=== PATIENT | male | born 1990 | race Caucasian/White ===

== ENCOUNTER 2018-04-20 00:19 | Emergency (ER) | payer OTHER ==
[2018-04-20] MEDS ORDERED: ONDANSETRON 4 MG/2 ML VIAL IVP ONE (00:26)
[2018-04-20] MEDS ORDERED: NS 1,000 ML IV ONE (00:26)
--- NOTE | 2018-04-20 00:26 | EDPHY ---
H & P Source: Police, RN/MD, EMS Exam Limitations: Intoxication Time Seen by Provider: 04/20/18 00:22 HPI/ROS: HPI: This is a 27-year-old male who presents with Chief Complaint: Alcohol intoxication Location: Body Quality: Alcohol intoxication Duration: Unknown Signs and Symptoms: No chest pain, no shortness of breath, no abdominal pain, no nausea, no vomiting Timing: Acute Severity: Moderate Context: Patient presents via EMS as his girlfriend called 911 as he was found in the back apartment lying on his stomach with snoring respirations. He was found to have small contusion on his right forehead and did not know how he fell or how he was injured. Girlfriend told EMS that he had been drinking alcohol a day, snorted a half a gram of cocaine around 8:00 p.m. And took 1 pill of Xanax while even the bar from friend that they met. Patient currently has no complaints. Denies headache, neck pain, dizziness, nausea, vomiting. Reports tetanus is current. Modifying Factors: EMS placed patient in cervical collar Comment: ROS: A comprehensive 10 system review of systems is otherwise negative aside from elements mentioned in the history of present illness. MEDICAL/SURGICAL/SOCIAL HISTORY: Medical history: Generally healthy. Does not take any regular medications. Surgical history: Denies Social history: Alcohol, tobacco, drug use. Family history noncontributory. CONSTITUTIONAL: Intoxicated but conversant with slurred words young adult white male, awake and alert, no obvious distress HEENT: Small area of contusion to right forehead and superficial laceration 1.5 cm noted right eyebrow. normocephalic, PERRL, EOMI. no globe entrapment, no raccoon eyes. no Alan signs.Tympanic membranes clear. No tympanic membrane rupture. Nares patent; no septal hematoma. Oropharynx clear, no exudate and moist pink mucosa. No malocclusion. no dental trauma. Airway patent. No lymphadenopathy. NECK: supple, in cervical collar Cardiovascular: Normal S1/S2, regular rate, regular rhythm, without murmur rub or gallop. PULMONARY/CHEST: Symmetrical and nontender. no crepitus. Clear to auscultation bilaterally. Good air movement. No accessory muscle usage. ABDOMEN: Soft, nondistended, nontender, no ecchymosis, no rebound, no guarding , no peritoneal signs, no masses or organomegaly. No CVAT. PELVIC: no pain with rocking; bilateral hips flexion 125 degrees, extension 30 degrees, with no pain internal rotation and no pain external rotation. BACK: No midline tenderness, no paraspinous spasm, deep tendon reflexes 2/2, no pain with straight leg raise EXTREMITIES: 2/2 pulses, no deformities, no clubbing, no cyanosis or edema. NEUROLOGICAL: no focal neuro deficits. GCS 15. Slurred speech. Fine and large motor deficits noted. SKIN: Warm and dry, no erythema. no rash. Good capillary refill. (Ruthie Sharpe) Constitutional: Initial Vital Signs Temperature (C) 36.6 C 04/20/18 00:27 Heart Rate 96 04/20/18 00:27 Respiratory Rate 18 04/20/18 00:27 Blood Pressure 135/94 H 04/20/18 00:27 O2 Sat (%) 97 04/20/18 00:27 O2 Delivery Mode Room Air Allergies/Adverse Reactions: No Known Allergies Allergy (Unverified 04/20/18 00:24) Home Medications: Medication Instructions Recorded NK [No Known Home Meds] 04/20/18 Medical Decision Making - Diagnostics Imaging Results: Imaging Impressions Cervical Spine CT 04/20/18 00:27 Impression: Negative noncontrast CT examination of the cervical spine for acute traumatic injury. The study was performed as an emergency on-call case and discussed by telephone with Dr. Grecia Cuadra at 1:30 AM hrs. The final interpretation is concordant with the original communication. Head CT 04/20/18 00:27 Impression: Normal noncontrast CT of the brain. The study was performed as an emergency on-call case and discussed by telephone with Dr. Grecia Cuadra at 1:30 AM hrs. The final interpretation is concordant with the original communication. Procedures: Procedure: Laceration repair. Verbal consent was obtained from the patient. The 0.5 cm, horizontal, simple, superficial laceration on the right eyebrow was was not anesthetized in the usual fashion. The wound was irrigated and draped. There were no deep structures involved. No tendon injury was identified. The wound was repaired with Steri-Strips. The procedure was performed by myself. (Ruthie Sharpe) ED Course/Re-evaluation: PHYSICIAN DOCUMENTATION: The patient was evaluated and managed by the Physician Warp Tester. My co- signature indicates that I have reviewed this chart and I agree with the findings and plan of care as documented. I am the secondary supervising physician. CT head and C-spine without contrast were performed and were negative. 6:15 a.m.- Patient's mother came to pick him up in the emergency department. He was eventually able to walk with a steady gait and was discharged home with her. ( Juana Wilkins) Vital signs reviewed upon arrival. Placed on hospital monitor. IV access and laboratory studies ordered Based on nexus protocol of intoxication and possible LOC; head CT scan and cervical CT scan ordered Given 1 L normal saline and IV Zofran 4 mg 0048: Labs reviewed. Potassium 5.3, Creatinine 0.8, YtLT=137, no signs of leukocytosis/anemia/platelet dysfunction. 1315: Notified by RN that patient took cervical collar off. neck exam shows no midline tenderness, flexion 45 degrees, extension 45 degrees , right and left lateral flexion 45 degrees. 1323: Urine drug screen positive for cocaine and marijuana. 1330: End of shift. Signed over to Dr. Wilkins pending head CT and cervical CT results. This patient was seen under the supervision of my secondary supervising physician. Discussed this patient with Dr. Wilkins. (Ruthie Sharpe) Differential Diagnosis: Altered mental status including but not limited to hypoglycemia, infectious process, electrolyte abnormality, head injury and intoxicants. (Ruthie Sharpe) - Data Points Laboratory Results: Laboratory Results 04/20/18 00:25 04/20/18 00:25 Medications Given: Discontinued Medications Sodium Chloride (Ns) 1,000 mls @ 0 mls/hr IV EDNOW ONE; Wide Open PRN Reason: Protocol Stop: 04/20/18 00:27 Last Admin: 04/20/18 00:35 Dose: 1,000 mls Ondansetron HCl (Zofran) 4 mg IVP EDNOW ONE Stop: 04/20/18 00:27 Last Admin: 04/20/18 00:35 Dose: 4 mg Departure - Departure Disposition: Home, Routine, Self-Care Clinical Impression: Polysubstance abuse Alcohol intoxication Qualifiers: Complication of substance-induced condition: uncomplicated Qualified Code(s): F10.920 - Alcohol use, unspecified with intoxication, uncomplicated Forehead contusion Qualifiers: Encounter type: initial encounter Qualified Code(s): S00.83XA - Contusion of other part of head, initial encounter Condition: Good Instructions: Head Injury (ED), Alcohol Intoxication (ED), Contusion in Adults (ED), Polysubstance Abuse (ED), Steristrips (ED) Additional Instructions: Keep the Steri-Strips dry or 48 hours. After 48 hours, you may wash the site daily with mild soap and water; then pat dry. Allow the Steri-Strips to fall off on their own in several days. Take Tylenol 650 mg every 4 hours and/or Ibuprofen 600 mg every 8 hours with food as needed for pain. Apply ice for 30 minutes at a time; 2-3 times per day for the next 1-2 days. Please refrain from taking multiple substances at once and drinking alcohol excessively. Return to the ER immediately if you have progressive headaches, neurologic deficits, gait abnormality, visual disturbance, slurred speech, or any other symptom that concerns you. Referrals: [facility],. [Clinic] - As per Instructions
[2018-04-20 00:52] LABS: PLATELET COUNT 167 10^3/uL (150-400)
[2018-04-20 05:59] VITALS: BP 127/70
== END 2018-04-20 06:22 | disposition home or self-care (01) ==
LOC: EDUNIT#
DX: S01.111A Laceration without foreign body of right eyelid and periocular area, initial encounter (principal); S00.83XA Contusion of other part of head, initial encounter; F14.10 Cocaine abuse, uncomplicated; F10.920 Alcohol use, unspecified with intoxication, uncomplicated; F13.90 Sedative, hypnotic, or anxiolytic use, unspecified, uncomplicated; E86.9 Volume depletion, unspecified; X58.XXXA Exposure to other specified factors, initial encounter; Y92.9 Unspecified place or not applicable; Y93.9 Activity, unspecified; Y99.9 Unspecified external cause status
CPT/HCPCS: 80305; 96374; G0480; J2405